=== PATIENT | male | born 1945 | race Caucasian/White ===

== ENCOUNTER 2018-03-11 15:08 | Inpatient (IN) | payer MEDICARE ==
[2018-03-11 15:38] LABS: #Basophils 0.1 thou/uL (0.0-0.2); #Eosinphils 0.1 thou/uL (0.0-0.7); #Lymphocytes 1.5 thou/uL (1.20-3.40); #Monocytes 0.6 thou/uL (0.11-0.59); #Neutrophils 5.4 thou/uL (1.40-6.50); %Basophils 0.9 % (0.0-1.0); %Eosinophils 1.3 % (0.0-10.0); %Lymphocytes 19.2 % (21.0-51.0); %Monocytes 7.5 % (0.0-10.0); %Neutrophils 71.1 % (42.0-75.0); Hemoglobin 14.1 g/dL (14.0-18.0); Mean Corpuscular HGB CONC 34.9 g/dL (32.0-36.0); Mean Corpuscular Hemoglobin 33.2 pg (27.0-31.0); Mean Corpuscular Volume 95.4 fl (80.0-94.0); Mean Platelet Volume 7.3 fL (7.4-10.4); Platelet Count 170 thou/uL (130-400); RBC Distribution Width 12.3 % (11.5-14.5); Red Blood Cell (RBC) Count 4.23 mill/uL (4.70-6.10); White Blood Cell (WBC) Count 7.7 thou/uL (4.8-10.8)
[2018-03-11 16:03] LABS: CKMB 1.3 ng/mL (0-6.6); Troponin I Less than 0.010 ng/mL (< 0.028)
[2018-03-11 16:08] LABS: ALT (SGPT) 19 U/L (8-55); AST (SGOT) 25 U/L (5-34); Albumin 4.5 g/dL (3.4-4.8); Alkaline Phosphatase 43 U/L (40-150); Anion Gap 14 mmol/L (10-20); BUN (Urea Nitrogen) 26 mg/dL (8.4-25.7); Bilirubin, Total 0.5 mg/dL (0.2-1.2); CK (CPK) 79 U/L (30-200); Calc. Creatinine Clearance 0 mL/min (70-130); Calcium 9.5 mg/dL (7.8-10.44); Carbon Dioxide 22 mmol/L (23-31); Chloride 105 mmol/L (98-107); Estimated GFR-MDRD 52; Globulin 3.1 g/dL (2.4-3.5); Glucose 117 mg/dL (83-110); Lipase 53 U/L (8-78); Potassium 5.4 mmol/L (3.5-5.1); Protein, Total 7.6 g/dL (5.8-8.1); Sodium 136 mmol/L (136-145)
[2018-03-11] MEDS ORDERED: Dextrose 50% Abboject 50 ML SYRINGE SLOW IVP PRN (17:04)
[2018-03-11] MEDS ORDERED: HumaLOG 300 UNITS/3 ML VIAL SC PRN (17:04)
[2018-03-11] MEDS ORDERED: Dextrose 5% in Water 1,000 ML IV PRN (17:04)
--- NOTE | 2018-03-11 17:04 | PDOC.EVN ---
Event Note - Event Note Event Note: H&P SUMMARY #[id number]
[2018-03-11] MEDS ORDERED: Acetaminophen 325 MG TAB PO PRN (17:09)
--- NOTE | 2018-03-11 18:07 | RAD ---
PORTABLE CHEST ONE VIEW: 03/11/18 at 4:03 p.m. HISTORY: Palpitations. FINDINGS: Comparison is made with exam of 10/17/12. Changes of median sternotomy are again seen. The heart is enlarged. No confluent areas of consolidati on, pneumothorax, marko pulmonary edema or pleural effusions are seen. There are degenerative changes in the acromioclavicular joints. IMPRESSION: No acute process. POS: VAISHNAVI
[2018-03-11 19:02] VITALS: BMI 30.3
[2018-03-11 19:46] LABS: Anion Gap 12 mmol/L (10-20); BUN (Urea Nitrogen) 25 mg/dL (8.4-25.7); Calc. Creatinine Clearance 68 mL/min (70-130); Calcium 9.9 mg/dL (7.8-10.44); Carbon Dioxide 26 mmol/L (23-31); Chloride 105 mmol/L (98-107); Estimated GFR-MDRD 56; Glucose 136 mg/dL (83-110); Potassium 4.3 mmol/L (3.5-5.1); Sodium 139 mmol/L (136-145)
[2018-03-11] MEDS: Famotidine 20 MG TAB PO SCH (19:55)
[2018-03-11] MEDS: Heparin 5,000 UNITS/ML VIAL SC SCH (19:55)
[2018-03-11 20:29] LABS: Vitamin B12 Greater than 2000 pg/mL (211-911)
--- NOTE | 2018-03-11 22:07 | HP ---
DATE OF ADMISSION: 03/11/2018 CHIEF COMPLAINT: Palpitations. HISTORY OF PRESENT ILLNESS: This is a 73-year-old male, who states that on palpating his pulse today , he noticed that it was very slow as well as bradycardic noted that the pulse rates are going as bernice n as 20s. Patient apparently sat down, remeasured it and back close to the 60s. The patient stated that he was performing some activities of normal living, walking around, sitting on his couch, etc. e tc. Repeated his pulse and was found to be 25. Again, the patient at this point in time called his parts counter representative, Dr. Guerra, and was advised to go to the ER for further management and care. The concepcion velez presented to the ER with initial finding pulse rates in the 40s; however, during time of examina tion, the patient's pulse rate was back to 58-61, which is where the patient states that he normally lives. Patient states that he has had a coronary artery event back in the 90s, which is when he quit smoking and the patient also states that he had been taking atenolol since the as well 25 mg d aily with no adjustment recently in his dosage. The patient denies any other symptoms or complaints. No nausea, vomiting, diarrhea, constipation, chest pain, pressure, shortness of breath were noted a s well. ALLERGIES: No known drug allergies. MEDICATIONS: See MAR. FAMILY HISTORY: Pertinent positives both sides for hypertension and diabetes. PAST MEDICAL HISTORY: Coronary artery bypass grafting, diabetes mellitus, and hypertension. Ex-smok ing history for 30 pack years, quit about 25 years ago. SOCIAL HISTORY: Currently nonsmoker, nondrinker. REVIEW OF SYSTEMS: Twelve-point review of systems performed. Pertinent positives in the HPI, otherw ise negative. PHYSICAL EXAMINATION: VITAL SIGNS: Blood pressure is 128/88, heart rate of 58, respiratory rate 18, temperature 98.5, and a pulse ox of 95 on room air. GENERAL: The patient in no acute distress, sitting in bed. HEENT: Pupils equal, round, and reactive to light and accommodation. Extraocular muscles intact. O ral cavity moist and pink. NECK: Supple, mobile, nontender thyroid. CARDIOVASCULAR: Borderline bradycardic rate. S1, S2. No murmurs or gallops appreciated. LUNGS: Clear to auscultation bilaterally, aerating well. No respiratory distress. ABDOMEN: Positive bowel sounds, soft, nontender. EXTREMITIES: 2+ peripheral pulses with trace edema bilateral lower extremities. No loss of motor or sensory function. NEUROLOGIC: Cranial nerves II-XII intact. PSYCHIATRIC: Patient is alert, oriented x3 with a normal affect and mood. LABORATORY DATA: CBC within normal limits. Basic metabolic panel shows a potassium borderline eleva anna at 5.4, creatinine elevated at 1.36. Of note, this is the highest creatinine the patient has had in the past year, 12/2016, it was 1.14 and 2 months ago is 1.27. Chest x-ray reveals no acute cardi opulmonary process. A cerclage wires noted on x-ray from prior surgery, possible right-sided pleural effusion noted. ASSESSMENT AND PLAN: 1. Symptomatic bradycardia. 2. Coronary artery disease. 3. Hypertension. 4. Diabetes mellitus type 2. 5. Possible pleural effusion noted. 6. At this point in time, we will admit the patient to telemetry observation. Consult Dr. Guerra for Cardiology. Hold all beta blockers for now. Hold all blood pressure medications if systolic les s than 120. 7. We will also start the patient on insulin sliding scale check A1c. 8. We will also obtain a repeat echocardiogram and start the patient on heparin 5000 q.12 b.i.d. as well as Pepcid 20 mg daily. 9. Trend enzymes, troponins first set of troponin was negative. We will get two more and also perfo rm renal ultrasound for spike in creatinine and get a urinalysis. Case and plan discussed with the p atagustin and his at length. They understand and agree with the plan.
[2018-03-11 22:51] LABS: Bilirubin Negative (Negative); Blood, Urine Negative (Negative); Clarity CLEAR (Clear); Glucose, Urine (Dipstick) Negative (Negative); Leukocyte Negative (Negative); Nitrite Negative (Negative); Protein, Urine (Dipstick) Negative (Neg-Trace); Specific Gravity, Urine 1.017 (1.002-1.036); Urobilinogen 0.2 mg/dL (0.2-1.0)
[2018-03-12 04:47] LABS: #Eosinphils 0.1 thou/uL (0.0-0.7); #Lymphocytes 1.7 thou/uL (1.20-3.40); #Monocytes 0.6 thou/uL (0.11-0.59); #Neutrophils 3.8 thou/uL (1.40-6.50); %Basophils 0.6 % (0.0-1.0); %Eosinophils 2.1 % (0.0-10.0); %Lymphocytes 26.5 % (21.0-51.0); %Monocytes 9.3 % (0.0-10.0); %Neutrophils 61.4 % (42.0-75.0); Hemoglobin 13.5 g/dL (14.0-18.0); Mean Corpuscular HGB CONC 33.7 g/dL (32.0-36.0); Mean Corpuscular Hemoglobin 32.5 pg (27.0-31.0); Mean Corpuscular Volume 96.2 fl (80.0-94.0); Platelet Count 157 thou/uL (130-400); RBC Distribution Width 12.1 % (11.5-14.5); Red Blood Cell (RBC) Count 4.16 mill/uL (4.70-6.10); White Blood Cell (WBC) Count 6.2 thou/uL (4.8-10.8)
[2018-03-12 05:14] LABS: Anion Gap 9 mmol/L (10-20); BUN (Urea Nitrogen) 23 mg/dL (8.4-25.7); Calc. Creatinine Clearance 74 mL/min (70-130); Calcium 9.3 mg/dL (7.8-10.44); Carbon Dioxide 29 mmol/L (23-31); Chloride 108 mmol/L (98-107); Estimated GFR-MDRD 63; Glucose 116 mg/dL (83-110); Potassium 4.9 mmol/L (3.5-5.1); Sodium 141 mmol/L (136-145)
[2018-03-12] MEDS ORDERED: Sodium Chloride 0.9% 1,000 ML IV SCH (09:00)
[2018-03-12] MEDS ORDERED: Communication Order-Pharmacy FS SCH (09:00)
[2018-03-12] MEDS: Famotidine 20 MG TAB PO SCH ×2 (09:42→21:11)
[2018-03-12] MEDS: Lisinopril 10 MG TAB PO SCH (09:42)
[2018-03-12] MEDS: Heparin 5,000 UNITS/ML VIAL SC SCH ×2 (09:42→21:11)
[2018-03-12 09:51] LABS: Hemoglobin A1c 6.4 % (4.0-6.0)
--- NOTE | 2018-03-12 09:56 | ULT ---
RNEAL ULTRASOUND: DATE: 03/12/18. PROVIDED CLINICAL HISTORY: Acute kidney injury. FINDINGS: The right kidney measures about 11.6 x 5.8 x 5.4 cm and demonstrates no evidence for hydronephrosis o r mass. The left kidney measures about 10.5 x 6.5 x 6.3 cm and demonstrates no evidence for hydronephrosis or mass. The urinary bladder appears sonographically unremarkable. IMPRESSION: No evidence for hydronephrosis. POS: AVANI
--- NOTE | 2018-03-12 12:04 | PDOC.PN ---
- Subjective Encounter Start Date: 03/12/18 Encounter Start Time: 12:01 Patient seen and examined, patient feeling well, no complaints, pending cardiac cath for AM, all questions answered. - Objective Vital Signs & Weight: Vital Signs (12 hours) Temp Pulse Resp BP BP Pulse Ox 03/12/18 11:50 97.3 F L 54 L 16 164/68 H 96 03/12/18 10:35 158/74 H 03/12/18 09:42 130/62 03/12/18 07:58 97.7 F 47 L 18 03/12/18 07:19 97.7 F 47 L 18 180/68 H 96 03/12/18 03:55 97.6 F 45 L 16 158/70 H 94 L Weight Weight 199 lb 9.6 oz I&O: 03/11/18 03/12/18 03/13/18 06:59 06:59 06:59 Intake Total 480 Output Total 275 Balance 205 Result Diagrams: 03/12/18 03:57 03/12/18 03:57 Additional Labs: Accuchecks 03/12/18 03/11/18 10:59 20:27 POC Glucose 193 H 159 H Phys Exam - Physical Examination Constitutional: NAD HEENT: PERRLA, moist MMs, sclera anicteric Neck: no nodes, no JVD, supple Respiratory: no wheezing, no rales, no rhonchi Cardiovascular: RRR, no significant murmur, no rub Gastrointestinal: soft, non-tender, no distention Musculoskeletal: no edema, pulses present Neurological: non-focal, normal sensation Psychiatric: normal affect, A&O x 3 Skin: no rash, normal turgor Dx/Plan (1) Bigeminal rhythm Code(s): I49.9 - CARDIAC ARRHYTHMIA, UNSPECIFIED Status: Acute (2) CAD (coronary artery disease) Code(s): I25.10 - ATHSCL HEART DISEASE OF [place] CORONARY ARTERY W/O ANG PCTRS Status: Acute (3) Diabetes mellitus Code(s): E11.9 - TYPE 2 DIABETES MELLITUS WITHOUT COMPLICATIONS Status: Acute - Plan * pending cardiac cath in AM * continue current plan of care for now * pacer/aicd placement may be needed depending on cardiac cath results * case and plan d/w patient and at length, they understand and agree with this plan
[2018-03-13] MEDS: Amlodipine 5 MG TAB PO SCH (05:49)
[2018-03-13] MEDS: Lisinopril 10 MG TAB PO SCH ×2 (05:49→22:59)
[2018-03-13] MEDS: Famotidine 20 MG TAB PO SCH ×2 (05:49→22:59)
[2018-03-13] MEDS: Sodium Chloride 0.9% 1,000 ML IV SCH (05:49)
[2018-03-13] MEDS: Heparin 5,000 UNITS/ML VIAL SC SCH (05:50)
[2018-03-13] MEDS ORDERED: Sodium Chloride 0.9% 1,000 ML IV SCH ×2 (06:00→16:15)
--- NOTE | 2018-03-13 09:31 | PDOC.PN ---
- Subjective Encounter Start Date: 03/13/18 Encounter Start Time: 09:30 Patient seen and examined, no new issues. at bedside, all questions answered. - Objective Vital Signs & Weight: Vital Signs (12 hours) Temp Pulse Resp BP Pulse Ox 03/13/18 08:00 98.2 F 46 L 20 03/13/18 07:51 98.2 F 46 L 20 140/60 95 03/13/18 04:00 97.8 F 72 18 136/56 L 95 Weight Weight 197 lb 3.2 oz I&O: 03/12/18 03/13/18 03/14/18 06:59 06:59 06:59 Intake Total 740 Output Total 1400 Balance -660 Result Diagrams: 03/12/18 03:57 03/12/18 03:57 Additional Labs: Accuchecks 03/12/18 03/12/18 20:27 16:26 POC Glucose 159 H 104 Phys Exam - Physical Examination Constitutional: NAD HEENT: PERRLA, moist MMs, sclera anicteric Neck: no nodes, no JVD Respiratory: no wheezing, no rales, no rhonchi Cardiovascular: no significant murmur, no rub bradycardia Gastrointestinal: soft, non-tender, no distention Musculoskeletal: pulses present, edema present (trace) Neurological: normal sensation, moves all 4 limbs Psychiatric: normal affect, A&O x 3 Dx/Plan (1) Bigeminal rhythm Code(s): I49.9 - CARDIAC ARRHYTHMIA, UNSPECIFIED Status: Acute (2) CAD (coronary artery disease) Code(s): I25.10 - ATHSCL HEART DISEASE OF [place] CORONARY ARTERY W/O ANG PCTRS Status: Acute (3) Diabetes mellitus Code(s): E11.9 - TYPE 2 DIABETES MELLITUS WITHOUT COMPLICATIONS Status: Acute - Plan * cardiac cath today * DC plans in AM if cardiac cath negative and no rise in Cr levels * continue all other plans of care * case and plan d/w patient and at length, they understand and agree with this plan
[2018-03-13] MEDS ORDERED: Heparin 10,000 UNITS/1 ML VIAL ONE (12:38)
[2018-03-13] MEDS ORDERED: Lidocaine 1% (PF) 30 ML VIAL ONE (12:38)
[2018-03-13] MEDS ORDERED: Iopamidol 370 76% 100 ML VIAL ONE (14:04)
[2018-03-13] MEDS ORDERED: Iopamidol 370 76% 50 ML VIAL FS ONE (14:04)
[2018-03-13] MEDS ORDERED: Fentanyl 100 MCG/2 ML VIAL ONE (14:08)
[2018-03-13] MEDS ORDERED: Midazolam HCl 2 mg/2 ml Vial ONE (14:08)
[2018-03-13] MEDS ORDERED: Nitroglycerin 100MG/250ML BOT 250 ML ONE (14:53)
[2018-03-13] MEDS ORDERED: Clopidogrel Bisulfate 300 MG TAB ONE (15:16)
[2018-03-13] MEDS ORDERED: Bivalirudin 250 MG VIAL ONE (15:16)
[2018-03-14] MEDS: Sodium Chloride 0.9% 1,000 ML IV SCH ×2 (00:23→08:18)
[2018-03-14 05:05] LABS: #Eosinphils 0.1 thou/uL (0.0-0.7); #Lymphocytes 1.1 thou/uL (1.20-3.40); #Monocytes 0.6 thou/uL (0.11-0.59); %Basophils 0.1 % (0.0-1.0); %Eosinophils 1.8 % (0.0-10.0); %Lymphocytes 19.1 % (21.0-51.0); %Monocytes 10.4 % (0.0-10.0); %Neutrophils 68.6 % (42.0-75.0); Hemoglobin 13.7 g/dL (14.0-18.0); Mean Corpuscular HGB CONC 34.6 g/dL (32.0-36.0); Mean Corpuscular Hemoglobin 33.4 pg (27.0-31.0); Mean Corpuscular Volume 96.5 fl (80.0-94.0); Mean Platelet Volume 7.3 fL (7.4-10.4); Platelet Count 150 thou/uL (130-400); RBC Distribution Width 12.1 % (11.5-14.5); Red Blood Cell (RBC) Count 4.09 mill/uL (4.70-6.10); White Blood Cell (WBC) Count 5.8 thou/uL (4.8-10.8)
[2018-03-14 05:48] LABS: ALT (SGPT) 17 U/L (8-55); AST (SGOT) 14 U/L (5-34); Albumin 3.8 g/dL (3.4-4.8); Alkaline Phosphatase 36 U/L (40-150); Anion Gap 10 mmol/L (10-20); BUN (Urea Nitrogen) 17 mg/dL (8.4-25.7); Bilirubin, Total 0.6 mg/dL (0.2-1.2); Calc. Creatinine Clearance 84 mL/min (70-130); Calcium 8.8 mg/dL (7.8-10.44); Carbon Dioxide 26 mmol/L (23-31); Chloride 108 mmol/L (98-107); Estimated GFR-MDRD 73; Globulin 2.3 g/dL (2.4-3.5); Glucose 107 mg/dL (83-110); Potassium 4.3 mmol/L (3.5-5.1); Protein, Total 6.1 g/dL (5.8-8.1); Sodium 140 mmol/L (136-145)
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
--- NOTE | 2018-03-14 07:29 | CCL ---
CARDIAC CATHETERIZATION REPORT: Date: 03/13/18 PROCEDURE: Left heart catheterization, selective arteriography, left ventriculography, bypass graft angiography, and stent placement in the right posterior descending and into the right coronary artery. INDICATION: Increased ventricular ectopy. DESCRIPTION OF PROCEDURE: The patient was brought to the cardiac starch factory laborer and the right groin was prepped and draped in the usu al fashion. 1% lidocaine was infiltrated. A 6 Afghan sheath was placed into the right femoral artery and heparin 3,000 units given. A 6 Afghan angulated pigtail was inserted and pressures were obtained. Left ventriculogram was performed using 30 ml of contrast at 12 ml/s in a SANTOS 30 degree projection. Pressures were obtained and the pigtail was removed. A 6 Afghan Lacy left-4 followed by a 6 Afghan Lacy right-4 was used for coronary arteriography. Due to tortuosity in the right iliofemoral syst em, exchange wire was used for all catheter exchanges. The right-4 was exchanged over a wire for a multipurpose guide, This was inserted into the right shaista nary artery graft. Floppy Choice wire was advanced into the distal right posterior descending. The ar ea was predilated with Emerge 2.0 x 20 mm balloon. This was then followed by placement of Synergy 2.2 5 x 24 and Synergy 2.25 x 16. The proximal portion of the stents were in the right coronary artery ne ar the graft insertion site. During the procedure, the patient received Angiomax, as well as Plavix 6 00 mg PO. Sheath was sutured in place. The patient was transferred to PCU. RESULTS: PRESSURES: Aorta 186/67, mean of 113 Left Ventricle 179/3 LEFT VENTRICULOGRAM: Mild global hypokinesis with ejection fraction of 45-50%. CORONARY ARTERIOGRAPHY: 1. The left main was normal. 2. The LAD had a 30% proximal stenosis, a 50% distal stenosis, and a 50% apical stenosis. 3. The ramus was totally occluded. 4. The circumflex had a 30% proximal stenosis. 5. The first obtuse marginal was totally occluded. 6. The right coronary artery was totally occluded proximally. BYPASS GRAFTS: 1. Obtuse marginal graft was patent. 2. Ramus graft was patent (piggybacked onto the obtuse marginal graft). 3. Right coronary artery graft at the right posterior descending takeoff was patent. There were 90% and 80% lesions in the right posterior descending. INTERVENTIONL RESULTS: Both the 90% and 80% lesions were reduced to 0% in the right posterior descending. IMPRESSION: 1. Two vessel coronary artery disease. 2. Three of three bypass grafts patent. 3. Mild left ventricular dysfunction. 4. Successful stent placement in the right posterior descending.
[2018-03-14] MEDS: Amlodipine 5 MG TAB PO SCH ×2 (08:13→08:14)
[2018-03-14] MEDS: Famotidine 20 MG TAB PO SCH (08:13)
[2018-03-14] MEDS: Lisinopril 10 MG TAB PO SCH (08:14)
[2018-03-14] MEDS ORDERED: Clopidogrel Bisulfate 75 MG TAB PO SCH (09:00)
--- NOTE | 2018-03-14 10:25 | PDOC.EVN ---
Event Note - Event Note Event Note: DC SUMMARY #[id number]
--- NOTE | 2018-03-14 11:14 | PDOC.PN ---
- Subjective Encounter Start Date: 03/14/18 Encounter Start Time: 11:12 Patient seen and examined, s/p cardiac cath yesterday with 2 stents placed, no new issues or complaints, all questions answered. - Objective Vital Signs & Weight: Vital Signs (12 hours) Temp Pulse Resp BP Pulse Ox 03/14/18 08:14 53 L 03/14/18 08:10 98.4 F 53 L 14 172/77 H 95 03/14/18 03:30 97.7 F 53 L 16 124/63 98 Weight Weight 197 lb 3.2 oz I&O: 03/13/18 03/14/18 03/15/18 06:59 06:59 06:59 Intake Total 740 792 Output Total 1400 475 Balance -660 317 Result Diagrams: 03/14/18 03:52 03/14/18 03:52 Additional Labs: Accuchecks 03/13/18 03/13/18 03/13/18 21:21 10:20 05:56 POC Glucose 170 H 142 H 138 H Phys Exam - Physical Examination Constitutional: NAD HEENT: PERRLA, moist MMs, sclera anicteric Neck: no nodes, no JVD, supple Respiratory: no wheezing, no rales, no rhonchi, clear to auscultation bilateral Cardiovascular: RRR, no significant murmur, no rub Gastrointestinal: soft, non-tender, no distention, positive bowel sounds Musculoskeletal: no edema, pulses present Neurological: normal sensation, moves all 4 limbs Dx/Plan (1) Bigeminal rhythm Code(s): I49.9 - CARDIAC ARRHYTHMIA, UNSPECIFIED Status: Acute (2) CAD (coronary artery disease) Code(s): I25.10 - ATHSCL HEART DISEASE OF [place] CORONARY ARTERY W/O ANG PCTRS Status: Acute (3) Diabetes mellitus Code(s): E11.9 - TYPE 2 DIABETES MELLITUS WITHOUT COMPLICATIONS Status: Acute - Plan * s/p cardiac cath with 2 stent placed * cardio clearance for discharge pending * DC summary dictated along with scripts being sent for all meds * dual antiplatelets + ERICA + Beta leonard + statin * DC once cleared by cardiology either today, or pacemaker placement if deemed necessary by cardiology * case and plan d/w patient at length, he understands and agrees with this plan
--- NOTE | 2018-03-14 14:26 | DIS ---
DATE OF ADMISSION: 03/11/2018 DATE OF DISCHARGE: 03/14/2018 ADMITTING DIAGNOSES: Dizziness, bigeminy bradycardia, history of coronary artery disease, history of bypass, history of diabetes mellitus, history of hypertension. DISCHARGE DIAGNOSES: 1. Dizziness, resolved. 2. Bigeminy resolved. 3. Status post 2 cardiac stent placements. 4. History of coronary artery disease, stable. 5. History of diabetes mellitus, stable. 6. History of hypertension, stable. HOSPITAL COURSE: This is a 73-year-old male who was admitted for palpitations. Admitted to Internal Medicine team was also followed very closely by Cardiology. The patient had a cardiac catheterizati on performed during his hospital stay and he was the recipient of 2 cardiac stent placements, stable for discharge. The patient at the time of discharge denies any nausea, vomiting, diarrhea, constipat ion, chest pain, fevers, or shortness of breath was supposed to be discharged home. Follow up with P KEKE and Cardiology within 2 weeks. DISPOSITION: Home. FOLLOWUP: Follow up with PCP, Cardiology 2 weeks. MEDICATIONS: Resume home meds. Prescriptions given for Plavix and the patient was to take aspirin 8 1 mg daily, Plavix 75 mg daily. Also, resume his home atenolol. Scripts given for simvastatin 10 mg daily, and also to resume his ERICA inhibitor at home. DIET: Low fat, low calorie, high fiber diet. ACTIVITY: As tolerated with assistance as appropriate. CONDITION: Stable. PROGNOSIS: Good. The case and plan discussed with the patient at length. He understood and agreed with this plan.
--- NOTE | 2018-03-14 16:23 | EKG ---
Test Reason : STAT Blood Pressure : / mmHG Vent. Rate : 051 BPM Atrial Rate : 051 BPM P-R Int : 178 ms QRS Dur : 096 ms QT Int : 488 ms P-R-T Axes : 055 061 059 degrees QTc Int : 449 ms Sinus bradycardia Otherwise normal ECG When compared with ECG of 12-JUL-2013 09:38, No significant change was found Confirmed by DR. Berhane SIMONS ([id number]) on 03/14/2018 4:23:29 PM Referred By: VIC Confirmed By:DR. Berhane SIMONS
--- NOTE | 2018-03-14 16:29 | EKG ---
Test Reason : Blood Pressure : / mmHG Vent. Rate : 051 BPM Atrial Rate : 051 BPM P-R Int : 180 ms QRS Dur : 092 ms QT Int : 494 ms P-R-T Axes : 046 065 061 degrees QTc Int : 455 ms Sinus bradycardia with frequent Premature ventricular complexes in a pattern of bigeminy Possible Left atrial enlargement abnormal When compared with ECG of 13-MAR-2018 16:37, (Unconfirmed) Premature ventricular complexes are now Present Confirmed by DR. Berhane SIMONS ([id number]) on 03/14/2018 4:28:58 PM Referred By: VIC Confirmed By:DR. Berhane SIMONS
[2018-03-14 16:51] VITALS: BP 136/61; TEMP 98.1
== END 2018-03-14 18:59 | disposition home or self-care (01) | DRG 247 ==
LOC: ERS 15:08 → 2SW 17:00 → OBSVTOIN 03-12 12:00 → 2NO 03-12 15:48
PROVIDERS: ADMIT Internal Medicine; ATTEND Internal Medicine
PROC: 027035Z Dilation of Coronary Artery, One Artery with Two Drug-eluting Intraluminal Devices, Percutaneous Approach (ICD-10-PCS; principal; 2018-03-13)
PROC: 4A023N7 Measurement of Cardiac Sampling and Pressure, Left Heart, Percutaneous Approach (ICD-10-PCS; 2018-03-13)
PROC: B2111ZZ Fluoroscopy of Multiple Coronary Arteries using Low Osmolar Contrast (ICD-10-PCS; 2018-03-13)
PROC: B2151ZZ Fluoroscopy of Left Heart using Low Osmolar Contrast (ICD-10-PCS; 2018-03-13)
DX: I49.3 Ventricular premature depolarization (principal); J90 Pleural effusion, not elsewhere classified; E11.9 Type 2 diabetes mellitus without complications; I25.10 Atherosclerotic heart disease of native coronary artery without angina pectoris; Z87.891 Personal history of nicotine dependence; Z95.1 Presence of aortocoronary bypass graft; I10 Essential (primary) hypertension; Z79.899 Other long term (current) drug therapy; Z79.84 Long term (current) use of oral hypoglycemic drugs; Z88.0 Allergy status to penicillin; Z88.1 Allergy status to other antibiotic agents; I25.2 Old myocardial infarction; R00.8 Other abnormalities of heart beat
CPT/HCPCS: 36415; 36416; 71045; 76770; 80048; 80053; 81003; 82550; 82553; 82607; 82746; 83036; 83690; 83880; 84443; 84484; 85025; 85347; 92928; 93005; 93010; 93306; 93458; 93798; 99152; 99153; C1725; C1769; C1874; C1887; C9600; J0583; J1644; J2001; J2250; J3010

== ENCOUNTER 2020-04-08 07:05 | Outpatient (CLI) | payer MEDICARE, OTHER ==
--- NOTE | 2020-04-08 16:21 | RAD ---
Exam: Chest one view HISTORY:Preoperative exam Comparison: 03/11/2018 FINDINGS: Cardiac silhouette: Normal Aorta: Unremarkable Pulmonary vessels: Normal Costophrenic angles: Clear LUNGS: No masses or consolidation. Pneumothorax: None Osseous abnormalities: None IMPRESSION: No acute cardiopulmonary process.
[2020-04-08 16:49] LABS: #Eosinphils 0.2 thou/uL (0.0-0.7); #Lymphocytes 1.8 thou/uL (1.20-3.40); #Monocytes 0.7 thou/uL (0.11-0.59); #Neutrophils 5.1 thou/uL (1.40-6.50); %Basophils 0.6 % (0.0-1.0); %Eosinophils 2.1 % (0.0-10.0); %Lymphocytes 22.7 % (21.0-51.0); %Monocytes 9.3 % (0.0-10.0); %Neutrophils 65.3 % (42.0-75.0); Hemoglobin 15.6 g/dL (14.0-18.0); Mean Corpuscular Hemoglobin 32.3 pg (27.0-31.0); Mean Platelet Volume 7.1 fL (7.4-10.4); Platelet Count 184 thou/uL (130-400); RBC Distribution Width 11.6 % (11.5-14.5); Red Blood Cell (RBC) Count 4.83 mill/uL (4.70-6.10); White Blood Cell (WBC) Count 7.8 thou/uL (4.8-10.8)
[2020-04-08 17:09] LABS: ALT (SGPT) 21 U/L (8-55); AST (SGOT) 21 U/L (5-34); Albumin 4.5 g/dL (3.4-4.8); Alkaline Phosphatase 48 U/L (40-110); Anion Gap 16 mmol/L (10-20); BUN (Urea Nitrogen) 23 mg/dL (8.4-25.7); Bilirubin, Total 0.3 mg/dL (0.2-1.2); Calc. Creatinine Clearance 0 mL/min (70-130); Calcium 9.8 mg/dL (7.8-10.44); Carbon Dioxide 23 mmol/L (23-31); Chloride 102 mmol/L (98-107); Estimated GFR-MDRD 68; Globulin 3.1 g/dL (2.4-3.5); Glucose 130 mg/dL (83-110); Potassium 4.8 mmol/L (3.5-5.1); Protein, Total 7.6 g/dL (5.8-8.1); Sodium 136 mmol/L (136-145)
[2020-04-09 10:59] LABS: SARS-CoV-2 MS2 Positive; SARS-CoV-2 N Gene Negative; SARS-CoV-2 S Gene Negative; SARS-CoV-2 orf1ab Negative
== END 2020-04-08 07:06 | disposition home or self-care (01) ==
LOC: LABBT 07:05
PROVIDERS: ATTEND Internal Medicine Cardiovascular Disease
DX: Z01.818 Encounter for other preprocedural examination (principal); Z11.59 Encounter for screening for other viral diseases
CPT/HCPCS: 71045; 80053; 85025; 93005; U0003; 87635; 93010

== ENCOUNTER 2020-04-10 06:06 | Day surgery (SDC) | payer MEDICARE ==
[2020-04-08 15:28] VITALS: BMI 29.6
[2020-04-10] MEDS ORDERED: Heparin 10,000 UNITS/1 ML VIAL ONE (06:45)
[2020-04-10 07:09] LABS: Cardiac Risk 4.7 (Less than 4.5)
[2020-04-10] MEDS ORDERED: Midazolam HCl 2 mg/2 ml Vial ONE (07:16)
[2020-04-10] MEDS ORDERED: Fentanyl 100 MCG/2 ML VIAL ONE (07:16)
[2020-04-10] MEDS ORDERED: Lidocaine 1% (PF) 30 ML VIAL ONE (07:23)
[2020-04-10] MEDS ORDERED: Bivalirudin 250 MG VIAL ONE (07:52)
[2020-04-10] MEDS ORDERED: Clopidogrel Bisulfate 300 MG TAB ONE (07:53)
[2020-04-10] MEDS ORDERED: Nitroglycerin 100MG/250ML BOT 250 ML ONE (08:09)
[2020-04-10] MEDS ORDERED: Iopamidol 370 76% 50 ML VIAL FS ONE (10:53)
[2020-04-10] MEDS ORDERED: Iopamidol 370 76% 100 ML VIAL ONE (10:53)
[2020-04-10] MEDS ORDERED: Sodium Chloride 0.9% 10 ML ONE (18:31)
[2020-04-10] MEDS ORDERED: hydrALAZINE 20 MG/ML VIAL ONE (18:31)
[2020-04-10] MEDS ORDERED: Lisinopril 10 MG TAB ONE (18:39)
[2020-04-10] MEDS ORDERED: hydrALAZINE 20 MG/ML VIAL SLOW IVP SCH (19:00)
[2020-04-10] MEDS ORDERED: Lisinopril 10 MG TAB PO SCH (19:45)
--- NOTE | 2020-04-11 05:47 | DIS ---
DATE OF ADMISSION: 04/10/2020 DATE OF DISCHARGE: 04/10/2020 Discharge summary after observation post-cardiac catheterization and stent placement. Mr. De La O had progression of apical LAD lesion with an 80% lesion. However, this was a very small vessel, less than 2 mm. 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 He underwent placement of a drug-eluting stent, Synergy 2.25 x 28 mm in this area and was observed during the day. Ranexa 500 mg BID will be added to his current regimen. Job ID: [id number] MTDD
== END 2020-04-10 19:07 | disposition home or self-care (01) ==
LOC: CCL 06:06
PROVIDERS: ATTEND Internal Medicine Cardiovascular Disease
PROC: 027034Z Dilation of Coronary Artery, One Artery with Drug-eluting Intraluminal Device, Percutaneous Approach (ICD-10-PCS; principal; 2020-04-10)
PROC: 4A023N7 Measurement of Cardiac Sampling and Pressure, Left Heart, Percutaneous Approach (ICD-10-PCS; 2020-04-10)
PROC: B2111ZZ Fluoroscopy of Multiple Coronary Arteries using Low Osmolar Contrast (ICD-10-PCS; 2020-04-10)
PROC: B2131ZZ Fluoroscopy of Multiple Coronary Artery Bypass Grafts using Low Osmolar Contrast (ICD-10-PCS; 2020-04-10)
DX: I25.10 Atherosclerotic heart disease of native coronary artery without angina pectoris (principal); I25.82 Chronic total occlusion of coronary artery; E78.00 Pure hypercholesterolemia, unspecified; I10 Essential (primary) hypertension; E11.9 Type 2 diabetes mellitus without complications; I25.2 Old myocardial infarction; I48.0 Paroxysmal atrial fibrillation; I87.2 Venous insufficiency (chronic) (peripheral); Z87.891 Personal history of nicotine dependence; Z79.02 Long term (current) use of antithrombotics/antiplatelets; Z79.82 Long term (current) use of aspirin; Z79.84 Long term (current) use of oral hypoglycemic drugs; Z79.899 Other long term (current) drug therapy; Z88.0 Allergy status to penicillin; Z88.1 Allergy status to other antibiotic agents; Z95.1 Presence of aortocoronary bypass graft; Z95.5 Presence of coronary angioplasty implant and graft
CPT/HCPCS: 36415; 76942; 80061; 85347; 92928; 93005; 93010; 93459; 93798; 99152; 99153; C1769; C1874; C1887; C9600; J0360; J0583; J1644; J2001; J2250; J3010